=== PATIENT | male | born 1975 | race Two or more races ===

== ENCOUNTER 2017-04-16 13:25 | Emergency (ER) | payer SELFPAY ==
[~2017-04-16] VITALS: Ht 165.1 cm; Wt 72.6 kg
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
[2017-04-16] MEDS ORDERED: HALOPERIDOL LACTATE INJ 5 MG/ML VIAL ONE (13:39)
[2017-04-16] MEDS ORDERED: LORAZEPAM INJ 2 MG/ML VIAL ONE (13:40)
--- NOTE | 2017-04-16 13:52 | NUR ---
PATIENT PLACED ON FACEMASK, SPO2=87%.
[2017-04-16] MEDS ORDERED: LORAZEPAM INJ 2 MG/ML VIAL IM ONE (14:00)
[2017-04-16] MEDS ORDERED: HALOPERIDOL LACTATE INJ 5 MG/ML VIAL IM ONE (14:00)
--- NOTE | 2017-04-16 19:05 | NUR ---
REPRT GIVEN TO JADIEL CHILDERS
--- NOTE | 2017-04-16 20:16 | NUR ---
ASSUMED D/C CARE ONLY ON BEHALF OF PRIMARY NURSE LISETH. Denies si/hi or any medical c/o at this time. Patient discharged to home in stable condition. Written and verbal after care instructions given. Patient verbalizes understanding of instruction. Ambulatory with a steady gait and given 3 bus tokens.
[2017-04-16 20:20] VITALS: BP 112/69
== END 2017-04-16 20:20 | disposition home or self-care (01) ==
LOC: ER 13:27
DX: F15.10 Other stimulant abuse, uncomplicated (principal)
CPT/HCPCS: A4606; J1630; J2060; Z7610

== ENCOUNTER → 2017-04-16 | Emergency (ER) | payer SELFPAY ==
[~2017-04-16] VITALS: Ht 167.6 cm; Wt 72.6 kg
--- NOTE | 2017-04-16 10:05 | NUR ---
MD OLSEN AT BEDSIDE
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
--- NOTE | 2017-04-16 10:17 | NUR ---
NO URINE SAMPLE COLLECTED AT THIS TIME. PER PATIENT HE DOESNT HAE TO GO AT THIS MOMENT
[2017-04-16 10:19] LABS: BASOPHILS # (AUTO) 0.2 /CMM (0.0-0.2); BASOPHILS % (AUTO) 1.7 % (0.0-2.0); EOSINOPHILS % (AUTO) 0.3 % (0.0-6.0); HEMATOCRIT 51 % (39-51); HEMOGLOBIN 17.4 g/dL (13.5-17.5); LYMPHOCYTES % (AUTO) 9.9 % (20.0-44.0); MEAN CORPUSCULAR HEMOGLOBIN 29 PG (26.0-33.0); MEAN CORPUSCULAR HGB CONC 34 g/dl (31.0-36.0); MEAN CORPUSCULAR VOLUME 85 fL (80-96); MONOCYTES # (AUTO) 0.1 /CMM (0.1-1.30); NEUTROPHILS # (AUTO) 8.5 /CMM (1.8-8.9); NEUTROPHILS % (AUTO) 87.1 % (43.0-81.0); PLATELET COUNT (AUTO) 259 /CMM (150-450); RDW COEFFICIENT OF VARIATION 13.8 (11.5-15.0); RED BLOOD CELL COUNT(AUTO) 5.95 MIL/uL (4.5-6.0); WHITE BLOOD COUNT (AUTO) 9.8 K/uL (4.3-11.0)
[2017-04-16 10:34] LABS: ACETAMINOPHEN 0 ug/ml (10-30); ALANINE AMINOTRANSFERASE 36 U/L (12-78); ALBUMIN 4.5 g/dL (3.4-5.0); ALCOHOL, BLOOD < 3 mg/dL (0-0); ALKALINE PHOSPHATASE 104 U/L (46-116); ASPARTATE AMINOTRANSFERASE 27 U/L (15-37); BILIRUBIN,DIRECT 0.2 mg/dL (0.0-0.2); CALCIUM, SERUM 9.4 mg/dL (8.5-10.1); CARBON DIOXIDE 19 mmol/L (21-32); CHLORIDE 103 mmol/L (98-107); CREATININE 1.1 mg/dL (0.6-1.3); GLUCOSE 98 mg/dL (74-106); POTASSIUM 4.3 mmol/L (3.5-5.1); SALICYLATE 0.3 mg/dL (2.8-20.0); SODIUM SERUM 138 mmol/L (136-145); TOTAL PROTEIN, SERUM 8.7 g/dL (6.4-8.2); UREA NITROGEN, BLOOD 18 mg/dL (7-18)
--- NOTE | 2017-04-16 10:50 | NUR ---
PATIENT WAS TAKEN TO CT
[2017-04-16 11:47] VITALS: BP 157/100
--- NOTE | 2017-04-16 12:15 | NUR ---
PATIENT WAS ASSISTED TO RESTROOM
--- NOTE | 2017-04-16 12:35 | NUR ---
Patient is resting comfortably in bed . AWAKE, VSS
--- NOTE | 2017-04-16 12:40 | NUR ---
PATIENT WAS FOUND LEAVING THE FACILITY. JAVIER LEVINE AND RN TRIED TO TALK TO THE PATIENT THE IMPORTANC OF STAYING IN THE HOSPITAL HOWEVER PATIENT QUICKLY RUN AWAY FROM THE ED. SECURITY PERSONEL SAW PT RUNNING AWAY. PT NOT ON HOLD. Patient eloped from facility. ER notified.
--- NOTE | 2017-04-16 12:41 | NUR ---
NORBERTO REMOVED HIS IV
[2017-04-16 12:48] LABS: APPEARANCE,URINE Slightly Cloudy (CLEAR); BILIRUBIN,URINE SMALL (NEGATIVE); BLOOD, URINE Negative Ery/uL (NEGATIVE); COLOR,URINE Yellow (YELLOW); KETONES,URINE >=160 (NEGATIVE); LEUKOCYTE ESTERASE ,URINE Negative (NEGATIVE); NITRITE, URINE Negative (NEGATIVE); PH,URINE 5.5 (5.0-8.0); PROTEIN,URINE Trace mg/dl (NEGATIVE); UGLUCOSE Negative (NEGATIVE)
[2017-04-16 13:02] LABS: BACTERIA,URINE None seen /HPF (None Seen); MUCUS,URINE Few /LPF (None Seen); SQUAMOUS EPITHELIAL CELL,UR Few /HPF (None Seen); WBC,URINE 0-3 /HPF (0-3)
== END | disposition left against medical advice (07) ==
LOC: ER 10:01
DX: F19.10 Other psychoactive substance abuse, uncomplicated (principal); F23 Brief psychotic disorder
CPT/HCPCS: 36415; 70450; 80048; 80076; 80305; 80329; 81001; 85025; 99285; A4606; G0480 ×2; Z7610; 81000-TC